=== PATIENT | male | born 1955 | race Caucasian/White ===

== ENCOUNTER 2020-12-02 12:44 | Emergency (ER) | payer MEDICARE, MEDICAID, SELFPAY ==
--- NOTE | ~2020-12-02 | XR_ITS ---
EXAMINATION: XR tibia fibula LT 2V DATE: 12/02/2020 13:27 INDICATION: Left lower leg injury. TECHNIQUE: 2 views of left tibia and fibula were obtained. COMPARISON: None. FINDINGS: Bone alignment is normal. No acute fracture. There is heterotopic ossification posterior to the fibular diaphysis. There are magda in medial tibial metaphysis. Partially visualized is instru mentation of distal femur. There is severe left knee osteoarthritis. There is a laceration anterior t o the proximal tibia. IMPRESSION: 1. No acute fracture or radiopaque foreign body. 2. Severe left knee osteoarthritis. Reviewed, dictated and finalized at location B.
[2020-12-02 12:52] VITALS: BP 159/91; PULSE 69; RESP 16; TEMP 36.4; O2SAT 97
--- NOTE | 2020-12-02 13:23 | ED.WOUNDLAC ---
HPI - Wound/Laceration General Chief Complaint: Wound/Laceration Stated Complaint: rebar puncture in left leg Time Seen by Provider: 12/02/20 13:10 Source: patient and RN notes reviewed Mode of arrival: ambulatory Limitations: no limitations History of Present Illness HPI narrative: THis is a 65 year old male who presents for evaluation of a left lower leg laceration. He accidentally fell into a concrete area and he suffered a large laceration along a rebar. He denies leg weakness, numbness or tingling. He is unsure of his last tetanus shot. Related Data Allergies Allergy/AdvReac Type Severity Reaction Status Date / Time No Known Allergies Allergy Verified 12/02/20 13:01 Review of Systems Review of Systems: All systems reviewed & are unremarkable except as noted in HPI and below PMFSH Past Medical History Medical History (Updated 12/02/20 @ 15:07 by Naomy Ferguson MD) Atrial fibrillation Surgical History Surgical History (Updated 12/02/20 @ 15:02 by Naomy Ferguson MD) History of repair of ACL Social History Social History Gender identity (if verbalized by the patient): Male Exam Const: General: no acute distress and alert Orientation/consciousness: patient oriented x3 Eyes: EOM: EOMs intact bilaterally Resp: Effort & Inspection: normal respiratory effort Neuro: General: patient oriented x3 and moves all extremities Extrem: Other: FROM, left lower leg with irregular 6 cm laceration through subcutaneous tissue, I see fascia but it is intact Psych: Mental Status: mental status grossly normal Affect: normal affect Course Reevaluation(s) Reevaluation #1: I discussed with patient wound management. I repaired his laceration , applied antibiotics ointment and I covered with tefla, 4x4 gauze and coban. Date: 12/02/20 Time: 15:05 Vital Signs Vital signs: Vital Signs Temperature 97.6 F 12/02/20 12:52 Pulse Rate 69 12/02/20 12:52 Respiratory Rate 16 12/02/20 12:52 Blood Pressure 159/91 H 12/02/20 12:52 Pulse Oximetry 97 12/02/20 12:52 Temperature 97.6 F 12/02/20 12:52 Pulse Rate 60 12/02/20 15:12 Respiratory Rate 20 12/02/20 15:12 Blood Pressure 151/80 H 12/02/20 15:12 Pulse Oximetry 97 12/02/20 15:12 Procedures Laceration Laceration 1: Date: 12/02/20 Time: 15:04 Site: lower extremity (left lower leg) Side (If applicable): left Size (cm): 6 Description: irregular Depth: simple, single layer Local Anesthetic: lidocaine 1% and with epi Amount of anesthesia used (mL): 8 Pre-repair: wound explored, irrigated and deep structures intact ====== Skin Level ====== Skin layer closed with: magda Number of sutures: 16 ====== Subcutaneous Layer ====== Subcutaneous layer closed with: vicryl Size: 4-0 Number of sutures: 4 Technique: simple, interrupted ====== Muscle Layer ====== ====== Tendon Layer ====== MDM - Wound/Laceration Imaging Data Radiologist's impression: ITS Impressions Tibia/Fibula X-Ray 12/02/20 13:43 IMPRESSION: 1. No acute fracture or radiopaque foreign body. 2. Severe left knee osteoarthritis. Discharge Plan Discharge Clinical Impression: Laceration of left leg Qualifiers: Encounter type: initial encounter Qualified Code(s): S81.812A - Laceration without foreign body, left lower leg, initial encounter Patient Disposition: Home, Self-Care Condition: Stable Instructions: Antibiotic Form, Care For Your Stitches (ED), Laceration (ED) Additional Instructions: Today you were evaluated for a laceration. You will need to get magda removed in 10-14 days. Keep wound clean daily. Keep it dry. Watch for signs of an infection. Prescriptions: New hydrocodone-acetaminophen 5-325 mg tablet 1 tablet PO Q6H PRN (Reason: pain) Qty: 7 RF: 0 Follow-up/Referr
[2020-12-02] MEDS: HYDROcodone/acetaminophen (*CRX) 5-325 MG TABLET 1 TAB PO (13:27)
[2020-12-02] MEDS: ONDANSETRON HCL ODT 4 MG TABLET PO (13:27)
[2020-12-02] MEDS: TETANUS,DIPHTHERIA,AC PERTUSSIS ADULT (0.5 ML) BOOSTRIX IM (13:32)
[2020-12-02 15:01] VITALS: BP 151/80; PULSE 60; RESP 20; O2SAT 99
[2020-12-02 15:12] VITALS: BP 151/80; PULSE 60; RESP 20; O2SAT 97
== END 2020-12-02 15:15 | disposition home or self-care (01) ==
PROVIDERS: Emergency Provider General Practice; PCP Emergency Medicine
DX: S81.812A Laceration without foreign body, left lower leg, initial encounter (principal); I48.91 Unspecified atrial fibrillation; Z23 Encounter for immunization; W01.118A Fall on same level from slipping, tripping and stumbling with subsequent striking against other sharp object, initial encounter
CPT/HCPCS: 12032; 73590; 90471; 90715; 99283; A9270

== ENCOUNTER 2023-10-25 14:02 | Outpatient (CLI) | payer OTHER, SELFPAY ==
[2023-10-25 14:23] LABS: Basophils Percent Auto 0.7 % (0.2-1.2); Eosinophils Absolute Auto 0.2 K/mm3 (0-0.3); Eosinophils Percent Auto 3.3 % (0-4.4); Hematocrit 34.2 % (42.0-52.0); Hemoglobin 11.6 g/dL (14.0-18.0); Immature Granulocyte Absolute 0.03 K/mm3 (0.00-0.031); Immature Granulocyte Percent A 0.5 % (0-0.5); Lymphocytes Absolute Auto 0.92 K/mm3 (0.9-3.2); Mean Corpuscular HGB Conc 33.9 g/dl (32-36); Mean Corpuscular Hemoglobin 31.1 pg (26-34); Mean Corpuscular Volume 91.7 fl (80-100); Mean Platelet Volume 9.8 fl (7.4-10.4); Monocytes Absolute Auto 0.5 K/mm3 (0.1-0.6); Neutrophils Absolute Auto 4.5 K/mm3 (1.3-6.7); Neutrophils Percent Auto 72.5 % (45.5-73.1); Platelet Count Result 213 k/mm3 (150-375); Red Blood Count 3.73 M/mm3 (4.6-6.20); Red Cell Distribution Width 13.8 % (11.5-14.5); White Blood Count 6.1 K/mm3 (4.5-10.0)
[2023-10-25 21:36] LABS: Alanine Aminotransferase 20 U/L (6-50); Alkaline Phosphatase 89 U/L (38-126); Anion Gap 12 mmol/L (4-12); Aspartate Amino Transferase 29 U/L (17-59); Bilirubin,Total 0.6 mg/dL (0.2-1.3); Blood Urea Nitrogen 27 mg/dL (9-20); Calcium 9.4 mg/dL (8.4-10.2); Carbon Dioxide 21 mmol/L (22-30); Chloride 103 mmol/L (98-107); Estimated Glomerular Filt Rate 55; Glucose 102 mg/dL (65-110); Potassium 4.7 mmol/L (3.4-5.0); Sodium 136 mmol/L (137-145)
== END 2023-10-25 14:03 | disposition home or self-care (01) ==
LOC: ANHLAB 14:05
PROVIDERS: PCP Emergency Medicine; Visit Provider Internal Medicine Hematology & Oncology
DX: D64.9 Anemia, unspecified (principal)
CPT/HCPCS: 36415; 80053; 85025

== ENCOUNTER 2023-11-29 13:34 | Outpatient (CLI) | payer OTHER, SELFPAY ==
[2023-11-29 13:53] LABS: Basophils Percent Auto 0.5 % (0.2-1.2); Eosinophils Absolute Auto 0.2 K/mm3 (0-0.3); Eosinophils Percent Auto 3.9 % (0-4.4); Hematocrit 36.5 % (42.0-52.0); Hemoglobin 12.2 g/dL (14.0-18.0); Immature Granulocyte Absolute 0.02 K/mm3 (0.00-0.031); Immature Granulocyte Percent A 0.3 % (0-0.5); Lymphocytes Absolute Auto 0.84 K/mm3 (0.9-3.2); Lymphocytes Percent Auto 14.1 % (18.3-44.2); Mean Corpuscular HGB Conc 33.4 g/dl (32-36); Mean Corpuscular Hemoglobin 31.2 pg (26-34); Mean Corpuscular Volume 93.4 fl (80-100); Mean Platelet Volume 9.8 fl (7.4-10.4); Monocytes Absolute Auto 0.4 K/mm3 (0.1-0.6); Monocytes Percent Auto 6.9 % (2.6-8.5); Neutrophils Absolute Auto 4.4 K/mm3 (1.3-6.7); Neutrophils Percent Auto 74.3 % (45.5-73.1); Platelet Count Result 209 k/mm3 (150-375); Red Blood Count 3.91 M/mm3 (4.6-6.20); Red Cell Distribution Width 13.4 % (11.5-14.5)
[2023-11-29 16:32] LABS: Iron 110 ug/dL (49-181)
[2023-11-29 16:38] LABS: Alanine Aminotransferase 20 U/L (6-50); Albumin Level 5.2 g/dL (3.5-5.1); Alkaline Phosphatase 88 U/L (38-126); Anion Gap 13 mmol/L (4-12); Aspartate Amino Transferase 30 U/L (17-59); Bilirubin,Total 0.8 mg/dL (0.2-1.3); Blood Urea Nitrogen 29 mg/dL (9-20); Calcium 9.3 mg/dL (8.4-10.2); Carbon Dioxide 19 mmol/L (22-30); Chloride 106 mmol/L (98-107); Estimated Glomerular Filt Rate 60; Glucose 143 mg/dL (65-110); Potassium 4.3 mmol/L (3.4-5.0); Sodium 138 mmol/L (137-145)
[2023-11-29 16:43] LABS: Percent Iron Saturation 29 % (20-50)
[2023-11-29 17:43] LABS: Folic Acid > 20.0 ng/mL (2.76->20)
[2023-12-04 13:03] LABS: Methylmalonic Acid 169 nmol/L (87-318)
[2023-12-07 11:19] LABS: Soluble Transferrin Receptor 1.69 mg/L (0.76-1.76)
== END 2023-11-29 13:35 | disposition home or self-care (01) ==
LOC: ANHLAB 13:36
PROVIDERS: PCP Emergency Medicine; Visit Provider Internal Medicine Hematology & Oncology
DX: D64.9 Anemia, unspecified (principal)
CPT/HCPCS: 36415; 80053; 82607; 82728; 82746; 83540; 83550; 83921; 84238; 85025